=== PATIENT | female | born 1960 | race Caucasian/White ===

== ENCOUNTER 2018-02-20 16:54 | Emergency (ER) | payer SELFPAY ==
[~2018-02-20] VITALS: Ht 177.8 cm; Wt 131.8 kg
[2018-02-20 16:56] VITALS: BP 150/92; TEMP 98.9
[2018-02-20] MEDS ORDERED: MOBIC15 MG PO (17:35)
[2018-02-20] MEDS ORDERED: KLONOPIN 0.5MG0.5 MG PO (17:35)
[2018-02-20] MEDS ORDERED: ZOLOFT 50MG50 MG PO (17:35)
[2018-02-20] MEDS ORDERED: SYNTHROID0.1 MG/TAB PO (17:35)
[2018-02-20] MEDS ORDERED: NORCO 325 MG-51 TAB PO (19:39)
[2018-02-20 20:15] VITALS: PULSE 77
== END 2018-02-20 20:13 | disposition home or self-care (01) ==
LOC: COL.ER 16:54
DX: S52.531A Colles' fracture of right radius, initial encounter for closed fracture (principal); E03.9 Hypothyroidism, unspecified; W01.0XXA Fall on same level from slipping, tripping and stumbling without subsequent striking against object, initial encounter; Y92.481 Parking lot as the place of occurrence of the external cause
CPT/HCPCS: J2250; J3010; Q4021